=== PATIENT | male | born 2005 | race Caucasian/White ===

== ENCOUNTER 2024-01-21 22:27 | Emergency (ER) | payer MEDICAID ==
[~2024-01-21] VITALS: Ht 180.3 cm; Wt 57.4 kg
[2024-01-21 22:31] VITALS: BP 133/71; PULSE 108; RESP 16; TEMP 98.9; O2SAT 97
[2024-01-21] MEDS: acetaminophen 325mg tablet PO ONE (23:33)
[2024-01-21] MEDS: TETanus/Pertussis (Acell)/Diphther VAC/PF (Tdap-Adult) 0.5ml syringe IMVAC ONE (23:33)
== END 2024-01-22 02:52 | disposition home or self-care (01) ==
LOC: ER 22:28
DX: S60.512A Abrasion of left hand, initial encounter (principal); S60.511A Abrasion of right hand, initial encounter; S00.511A Abrasion of lip, initial encounter; S09.90XA Unspecified injury of head, initial encounter; R55 Syncope and collapse; Z23 Encounter for immunization; W05.1XXA Fall from non-moving nonmotorized scooter, initial encounter; Y93.89 Activity, other specified; Y92.89 Other specified places as the place of occurrence of the external cause; Y99.8 Other external cause status
CPT/HCPCS: 70450; 90471; 90715; 99285

== ENCOUNTER 2024-06-29 18:56 | Emergency (ER) | payer MEDICAID ==
[~2024-06-29] VITALS: Ht 177.8 cm; Wt 56.1 kg
[2024-06-29] MEDS ORDERED: SULF1TAB49 PO (19:31)
[2024-06-29] MEDS: sulfamethoxazole/trimethoprim DS (800/160mg) tablet PO ONE (19:53)
[2024-06-29 20:09] VITALS: BP 131/86; PULSE 97; RESP 14; TEMP 98.8; O2SAT 97
== END 2024-06-29 20:12 | disposition home or self-care (01) ==
LOC: ER 18:57
DX: L02.414 Cutaneous abscess of left upper limb (principal)
CPT/HCPCS: 99283